=== PATIENT | male | born 1985 | race Caucasian/White ===

== ENCOUNTER → 2020-07-11 | Outpatient (CLI) | payer OTHER ==
--- NOTE | 2020-07-11 16:33 | RAD ---
Right tibia and fibula 2 views INDICATION: Right leg pain COMPARISON: Right tibia and fibula x-rays of 06/22/2020 FINDINGS: Interval intramedullary bibi fixation of the right tibia with interlocking screws proximally and dista lly. These reduce the distal right femoral fracture to anatomic alignment and there is evidence of ca llus formation around the fracture line which is still visible. No new or additional fracture is seen . Soft tissues are unremarkable. IMPRESSION: Intramedullary nail fixation of the spiral fracture of the distal right tibia with some evidence of h ealing in anatomic alignment. No acute superimposed osseous abnormality noted. Electronically signed by: Colby James MD (07/11/2020 4:30 PM) [id number]
== END ==
LOC: RAD 13:08
PROVIDERS: ATTEND Physician Assistant
DX: S82.301D Unspecified fracture of lower end of right tibia, subsequent encounter for closed fracture with routine healing (principal); M24.69 Ankylosis, other specified joint; X58.XXXD Exposure to other specified factors, subsequent encounter; Z98.890 Other specified postprocedural states
CPT/HCPCS: 73590

== ENCOUNTER → 2020-08-08 | Outpatient (CLI) | payer OTHER ==
--- NOTE | 2020-08-08 14:05 | RAD ---
EXAM: Right tibia and fibula, 2 views. HISTORY: Fracture fixation COMPARISON: 07/11/2020 FINDINGS: 2 views of the right tibia and fibula are obtained. There is internal fixation of a distal tibial metadiaphyseal fracture within intramedullary bibi. There has been no interval healing compared to the prior study. There is stable slight periosteal reaction along the medial distal tibia. There is an oblique lucency inferior to the prior fracture line within the medial distal tibial metadiaphys is which may be due to fracture line extension or a vascular channel. The ankle mortise is intact. IMPRESSION: Internal fixation of a displaced distal tibial fracture. There has been no clear interval healing compared to the prior study. There is new oblique linear lucency traversing the medial dista l tibial metadiaphysis and a single projection which may be due to a nondisplaced fracture line or va scular channel. Electronically signed by: Vivienne Chavarria MD (08/08/2020 2:02 PM) [id number]
== END ==
LOC: RAD 13:42
PROVIDERS: ATTEND Physician Assistant
DX: S82.291D Other fracture of shaft of right tibia, subsequent encounter for closed fracture with routine healing (principal); X58.XXXD Exposure to other specified factors, subsequent encounter
CPT/HCPCS: 73590

== ENCOUNTER → 2020-09-05 | Outpatient (CLI) | payer OTHER ==
--- NOTE | 2020-09-06 07:19 | RAD ---
Exam Date: 09/05/2020 1:47 PM XR RT TIBIA+FIBULA Indication: Reason: S/P RIGHT TIB/FIB SURGERY / Spl. Instructions: / History: COMPARISON: August 08, 2010 and July 11, 2010 and June 22, 2020 FINDINGS/ IMPRESSION: Tibial intramedullary bibi with proximal and distal interlocking screws is again seen across a distal tibial shaft, unchanged in alignment and position. Oblique linear lucency involving the medial aspect of the distal tibial metaphysis is again seen, possibly representing fracture extension. There is no evidence for hardware failure or loosening. No interval new fractures are identified. Soft tissue sw elling is noted. Electronically signed by: Mauro Martino MD (09/06/2020 7:17 AM) [id number]
== END ==
LOC: DXRAD 13:40
PROVIDERS: ATTEND Physician Assistant
DX: S82.291D Other fracture of shaft of right tibia, subsequent encounter for closed fracture with routine healing (principal); M25.474 Effusion, right foot; X58.XXXD Exposure to other specified factors, subsequent encounter
CPT/HCPCS: 73590

== ENCOUNTER → 2021-07-04 | Outpatient (CLI) | payer OTHER ==
--- NOTE | 2021-07-04 09:07 | RAD ---
Right tibia and fibula 2 views. HISTORY: Follow-up fracture AP and lateral views were taken of the right tibia and fibula. There is an intramedullary bibi in the tibia. There is a healed fracture of the distal tibia with mature callus formation. No new fracture i s noted. IMPRESSION: 1. Healed fracture distal tibia. 2. Intramedullary bibi remains in good position. Electronically signed by: Yves Diego MD (07/04/2021 9:05 AM) [id number]
== END ==
LOC: RAD 08:42
PROVIDERS: ATTEND Physician Assistant
DX: M79.661 Pain in right lower leg (principal)
CPT/HCPCS: 73590